=== PATIENT | female | born 1955 | race Caucasian/White ===

== ENCOUNTER 2016-11-08 17:21 | Emergency (ER) | payer MEDICAID ==
--- NOTE | 2016-11-08 17:35 | EDPHY ---
H & P Time Seen by Provider: 11/08/16 17:30 HPI/ROS: CHIEF COMPLAINT: Left middle digit crush injury HISTORY OF PRESENT ILLNESS: 61-year-old [id number] female with up-to- date tetanus complaining of left middle digit distal phalanx crush injury and laceration in between 2 heavy chairs. Positive paresthesia distally. Occurred shortly prior to arrival. PHYSICAL EXAM (Prior to examination, patient consented to physical exam, hands were washed and my usual and customary physical exam procedures followed) 1) GENERAL: Well-developed, well-nourished, alert and oriented. Appears to be in no acute distress. 2) HEAD: Normocephalic 3) HEENT: sclera anicteric 4) LUNGS: Breathing comfortably. 5) SKIN: left middle digit distal phalanx dorsal aspect distal 3rd of nail there is a transverse nail and underlying nail bed laceration. Nail bed laceration measures 1 cm 6) MUSCULOSKELETAL: left middle digit distal phalanx flexor and extensor function independently tested at the MCP, PIP, D IP and no no deficits appreciated on exam 7) NEUROLOGIC: Decreased sensation distal to the laceration Smoking Status: Never smoked Constitutional: Initial Vital Signs Temperature (C) 36.5 C 11/08/16 17:26 Heart Rate 58 L 11/08/16 17:26 Respiratory Rate 16 11/08/16 17:26 Blood Pressure 120/78 11/08/16 17:26 O2 Sat (%) 98 11/08/16 17:26 O2 Delivery Mode Room Air Allergies/Adverse Reactions: midazolam [From Versed] Allergy (Verified 11/08/16 17:25) Home Medications: Medication Instructions Recorded Cephalexin [Keflex] 500 mg PO TID 7 Days 11/08/16 MDM/Departure - MDM Imaging Results: Imaging Impressions Finger X-Ray 11/08/16 17:34 Impression: Acute tuft fracture, distal phalanx, left third finger. Procedures: Procedure: Laceration repair. I explained the indications, risks and benefits for both laceration repair and anesthetic administration. Verbal consent was obtained from the patient . The laceration on the left middle digit was anesthetized using 0.5% bupivicaine without epinephrine digital nerve block. After anesthetic administered the patient was observed for a period of time and had no apparent adverse effects. The wound was cleaned, prepped, draped in normal sterile fashion and explored to its base. No foreign body seen, no foreign bodies palpated. There were no deep structures involved. The nail was unroofed from the underlying nail bed and the nail bed laceration was repaired with 3 3, 5 0 Vicryl sutures. Base of the nail was reinserted. The wound repair was complex. The procedure was performed by myself. Patient has been informed that scarring will occur, although efforts have been made to minimize this. Medications Given: Discontinued Medications Cephalexin HCl (Keflex) 500 mg PO EDNOW ONE PRN Reason: Protocol Stop: 11/08/16 18:26 Last Admin: 11/08/16 18:28 Dose: 500 mg ED Course/Re-evaluation: Patient was re-evaluated with serial exams. Discussed her tuft fracture findings in the presence of a nail bed fracture informed her that this is an open tuft fracture. She is started on Keflex and recommended follow up with on- call hand surgery next 1-3 days. We discussed risks of osteomyelitis and importance of follow-up. She feels comfortable with this plan all questions and concerns addressed by myself. - Depart Disposition: Home, Routine, Self-Care Clinical Impression: Laceration of nail bed of finger Qualifiers: Encounter type: initial encounter Qualified Code(s): S61.319A - Laceration without foreign body of unspecified finger with damage to nail, initial encounter Open fracture of tuft of distal phalanx of finger Qualifiers: Encounter type: initial encounter Qualified Code(s): S62.639B - Displaced fracture of distal phalanx of unspecified finger, initial encounter for open fracture Condition: Good Instructions: Finger Fracture (ED) Additional Instructions: Return to the ER if you develop redness, swelling, discharge, warmth to the wound, red streaks going up your arm , or any other symptoms that concern you. Prescriptions: Cephalexin [Keflex] 500 mg PO TID 7 Days Referrals: Etienne Castro MD [Medical Doctor] - 1-2 days without fail
[2016-11-08] MEDS ORDERED: CEPHALEXIN 500 MG CAP PO ONE (18:25)
[2016-11-08 19:10] VITALS: BP 128/75; PULSE 61; RESP 20; TEMP 98.1; O2SAT 96
== END 2016-11-08 19:09 | disposition home or self-care (01) ==
PROC: 0HQQXZZ Repair Finger Nail, External Approach (ICD-10-PCS; principal; 2016-11-08)
DX: S62.633B Displaced fracture of distal phalanx of left middle finger, initial encounter for open fracture (principal); S61.313A Laceration without foreign body of left middle finger with damage to nail, initial encounter; W23.1XXA Caught, crushed, jammed, or pinched between stationary objects, initial encounter